=== PATIENT | male | born 1990 | race Two or more races ===

== ENCOUNTER 2018-05-16 19:58 | Emergency (ER) | payer OTHER ==
[~2018-05-16] VITALS: Ht 175.3 cm; Wt 104.3 kg
[2018-05-16] MEDS ORDERED: EPINEPHrine HCL 1 MG/1 ML AMP SC ONE (20:15)
[2018-05-16] MEDS ORDERED: SODIUM CHLORIDE 0.9% 1,000 ML IV ONE (20:15)
[2018-05-16] MEDS ORDERED: methylPREDNISolone SOD SUCC 125 MG/2 ML VL IV ONE (20:15)
[2018-05-16] MEDS ORDERED: FAMOTIDINE (10MG/ML) 2ML VL IV ONE (20:15)
[2018-05-16 22:40] VITALS: BP 122/62
== END 2018-05-16 22:53 | disposition home or self-care (01) ==
LOC: ER 19:58
DX: T78.40XA Allergy, unspecified, initial encounter (principal); T78.3XXA Angioneurotic edema, initial encounter; Z91.018 Allergy to other foods
CPT/HCPCS: 96372; 96374; 96375; 99284; J0171; J2930; J3490